=== PATIENT | female | born 1995 | race Hispanic/Latino ===

== ENCOUNTER 2016-05-29 21:34 | Emergency (ER) | payer OTHER ==
[2016-05-29] MEDS ORDERED: TYLENOL PO ONE (22:45)
--- NOTE | 2016-05-29 22:50 | Emergency Department Report ---
Chief Complaint: Fever Stated Complaint: VOMITING/FEVER/HEADACHE/DIZZY/BODY ACHES - HPI History of Present Illness: Patient reports that she has been having intermittent emesis, cough, congestion , body aches, fever for the past 1 week. Denies any other symptoms. - ROS Review of Systems: fever, cough, congestion, body aches, emesis. - Exam Vital Signs: Vital Signs 05/29/16 22:34 Temperature 102.5 F H Pulse Rate 134 H Respiratory 20 Rate Blood Pressure 106/68 O2 Sat by Pulse 100 Oximetry Physical Exam: RRR, CTA B/L, no abdominal tenderness on exam. MSE screening note: Focused history and physical exam performed. Due to findings the following was ordered: BLood work ordered. Gave 1000mg Tylenol in the Ed triage room. ED Disposition for MSE Condition: Stable
[2016-05-29 23:22] LABS: Basophils % (Auto) 0.3 % (0.0-1.8); Eosinophils % (Auto) 0.1 % (0.0-4.3); Hematocrit 39.4 % (30.3-42.9); Hemoglobin 12.8 gm/dl (10.1-14.3); Mean Corpuscular HGB Conc 33 % (30-34); Mean Corpuscular Hemoglobin 29 pg (28-32); Mean Corpuscular Volume 90 fl (79-97); Platelet Count 245 K/mm3 (140-440); Red Blood Count 4.38 M/mm3 (3.65-5.03); Red Cell Distribution Width 13.3 % (13.2-15.2); White Blood Count 7.9 K/mm3 (4.5-11.0)
[2016-05-29 23:35] LABS: Anion Gap 24 mmol/L; BUN/Creatinine Ratio 11.66; Blood Urea Nitrogen 7 mg/dL (7-17); Carbon Dioxide 21 mmol/L (22-30); Chloride 95.8 mmol/L (98-107); Glucose 111 mg/dL (65-100); Lipase 39 units/L (13-60); Potassium 3.4 mmol/L (3.6-5.0); Sodium 137 mmol/L (137-145)
--- NOTE | 2016-05-30 10:16 | XRay Report ---
ROUTINE CHEST, TWO VIEWS: HISTORY: Cough, fever. The trachea, heart, mediastinal contour, lung santana and bony thorax are unremarkable. Piercing is noted. IMPRESSION: Unremarkable chest x-ray.
[2016-05-30] MEDS ORDERED: NACL 0.9% 1000 ML IV ONE (10:51)
--- NOTE | 2016-05-30 11:11 | Emergency Department Report ---
HPI - General Chief Complaint: Fever Time Seen by Provider: 05/30/16 10:49 - HPI HPI: Chief complaint: Patient complains of being ill for the last 2 weeks. HPI: Patient states initially she had about 4 days of nausea and vomiting. Patient states when she stands up she is lightheaded and does complain of a headache, nonproductive cough, sore throat. Patient has been taking DayQuil and Tylenol Cold with some relief. Patient did not get her flu vaccination this year. Patient does have a history of smoking but states she has not smoked in the last 2 weeks. Currently patient is running a fever. Mode of arrival: [private car] Source: [Patient] Began: 2 weeks ago Duration: See above Context: See above Quality: Dull headache, sore throat, aching Severity: 6 out of 10 Improved with: [id number] medications Worsened with: Standing Associated signs and symptoms: See above ED Past Medical Hx - Past Medical History Previous Medical History?: No Additional medical history: Asthma as a child - Surgical History Past Surgical History?: No Additional Surgical History: D&C - Social History Smoking Status: Current Every Day Smoker Substance Use Type: None - Medications Home Medications: Home Medications Medication Instructions Recorded Confirmed Last Taken Type HYDROcodone/APAP 5-325 [Benjamin 1 each PO Q6HR PRN #10 tablet 01/31/14 Unknown Rx 5/325] Ondansetron [Zofran Odt] 4 mg PO Q8HR #14 tab.rapdis 01/31/14 Unknown Rx Promethazine [Phenergan] 12.5 mg W[place] Q6H PRN #7 supp.rect 01/31/14 Unknown Rx Sulfamethoxazole/Trimethoprim 1 each PO BID #14 tablet 02/11/15 Unknown Rx [Bactrim DS TAB] Fluconazole [Diflucan TAB] 150 mg PO ONCE #1 tablet 02/12/15 Unknown Rx metroNIDAZOLE [Flagyl] 500 mg PO Q12HR #20 tab 02/12/15 Unknown Rx Ondansetron [Zofran Odt] 4 mg PO Q4H PRN #7 tab.rapdis 05/30/16 Unknown Rx ED Review of Systems ROS: Stated complaint: VOMITING/FEVER/HEADACHE/DIZZY/BODY ACHES Other details as noted in HPI ROS Constitutional: No fever ENT: No uri symptoms Cardiovascular: No chest pain Respiratory: No cough GI: No diarrhea : No dysuria frequency or urgency, Skin: No rash Neuro: No focal weakness or numbness Psych: No depression Jeremias/lymph: No edema Physical Exam - Physical Exam Vital Signs: Vital Signs 05/29/16 05/30/16 22:34 10:42 Temperature 102.5 F H 99.3 F Pulse Rate 134 H 79 Respiratory 20 14 Rate Blood Pressure 106/68 Blood Pressure 122/68 [Left] O2 Sat by Pulse 100 Oximetry Physical Exam: GENERAL: The patient is well-developed well-nourished . HEENT: Normocephalic. Atraumatic. Extraocular motions are intact. Patient has moist mucous membranes. TMs negative, pharynx slightly erythematous without exudate or swelling. NECK: Supple. No meningitic signs are noted. There is no adenopathy noted. CHEST/LUNGS: Clear to auscultation. There is no respiratory distress noted. HEART/CARDIOVASCULAR: Regular. There is no tachycardia. There is no gallop rub or murmur. ABDOMEN: Abdomen is soft, nontender. Patient has normal bowel sounds. There is no abdominal distention. SKIN: There is no rash. There is no edema. There is no diaphoresis. NEURO: The patient is awake, alert, and oriented. The patient is cooperative. The patient has no focal neurologic deficits. The patient has normal speech. MUSCULOSKELETAL: There is no tenderness or deformity. There is no limitation range of motion. There is no evidence of acute injury. ED Course Vital Signs 05/29/16 05/30/16 22:34 10:42 Temperature 102.5 F H 99.3 F Pulse Rate 134 H 79 Respiratory 20 14 Rate Blood Pressure 106/68 Blood Pressure 122/68 [Left] O2 Sat by Pulse 100 Oximetry - Reevaluation(s) Reevaluation #1: 05/30/16 11:11 Patient will be given 2 L of normal saline. 05/30/16 13:32 Patient improved with IV fluids. ED Medical Decision Making - Lab Data Result diagrams: 05/29/16 22:51 05/29/16 22:51 Laboratory Tests 05/29/16 05/30/16 22:51 11:06 Calcium 9.0 Lipase 39 Monoscreen Negative Urinalysis within normal limits. - Radiology Data interpreted by me: Chest x-ray shows no acute process. Critical care attestation.: If time is entered above; I have spent that time in minutes in the direct care of this critically ill patient, excluding procedure time. ED Disposition Clinical Impression: Viral illness Disposition: DISCHARGED TO HOME OR SELFCARE Is pt being admited?: No Does the pt Need Aspirin: No Condition: Stable Instructions: Viral Syndrome (ED) Prescriptions: Ondansetron [Zofran Odt] 4 mg PO Q4H PRN #7 tab.rapdis PRN Reason: Nausea And Vomiting Referrals: HIGINIO GUTHRIE MD [Staff Physician] - 3-5 Days PRIMARY CARE, [Primary Care Provider] - 3-5 Days (Dr. Guthrie is an internal medicine physician with whom you may follow up if you do not improve) Time of Disposition: 13:32
[2016-05-30 11:14] LABS: Bacteria,Urine 3+ /HPF (Negative); Bilirubin,Urine NEG (Negative); Blood,Urine LG (Negative); Ketones,Urine 80 mg/dL (Negative); Leukocyte Esterase,Urine NEG (Negative); Mucus,Urine 3+ /HPF; Nitrite,Urine NEG (Negative); Urobilinogen,Urine < 2.0 mg/dL (<2.0)
[2016-05-30 15:15] VITALS: BP 113/73
== END 2016-05-30 13:50 | disposition home or self-care (01) ==
LOC: ED 21:34
DX: B34.9 Viral infection, unspecified (principal); J45.909 Unspecified asthma, uncomplicated; F17.200 Nicotine dependence, unspecified, uncomplicated
CPT/HCPCS: 36415; 71020; 80048; 81001; 81025; 83690; 85025; 86308; 87116; 87430; 96360; 96361; 99284; J7030